=== PATIENT | male | born 1950 | race Caucasian/White ===

== ENCOUNTER → 2018-06-25 08:01 | Outpatient (CLI) | payer MEDICARE, OTHER, SELFPAY ==
--- NOTE | 2018-06-25 | DI.US.S_ITS ---
PROCEDURE: US ABD AORTA ANEURYSM SCREEN INDICATIONS: SCREENING/COUGH/DYSPNEA TECHNIQUE: Real time scanning was performed of the aorta and iliac arteries, with image documentation. COMPARISON: None. FINDINGS: Aorta: Proximal aortic diameter measures 2.1 cm. Mid-aorta measures 1.5 cm. Distal aortic diameter is 1.6 cm. Iliac arteries: Right common iliac artery measures 0.8 cm. Left common iliac artery measures 0.9 cm. IMPRESSION: No ectasia or aneurysmal dilatation of the abdominal aorta or iliac arteries. Dictated by: Peace Lanier M.D. on 06/25/2018 at 8:47 Approved by: Peace Lanier M.D. on 06/25/2018 at 8:48
--- NOTE | 2018-06-25 | DI.RAD.S_ITS ---
PROCEDURE: XR CHEST 2V INDICATIONS: SCREENING/COUGH/DYSPNEA TECHNIQUE: 2 views of the chest were acquired. COMPARISON: [facility], CHEST 2 VIEW, 07/14/2015, 9:20. [facility], CHEST 2 VIEW, 03/26/2015, 15:27. FINDINGS: Surgical changes and devices: None. Lungs and pleura: No pleural effusions or pneumothorax. Lungs are clear. Mediastinum: Mediastinal contours are normal. Heart size is normal. Bones and chest wall: No suspicious bony abnormalities. Soft tissues appear unremarkable. IMPRESSION: Normal for age, source of current symptoms is not seen. Dictated by: Bang Romano M.D. on 06/25/2018 at 8:29 Approved by: Bang Romano M.D. on 06/25/2018 at 8:29
== END ==
PROVIDERS: Family Provider Family Medicine; PCP Family Medicine; Visit Provider Family Medicine
DX: Z13.6 Encounter for screening for cardiovascular disorders (principal); R05 Cough; R06.00 Dyspnea, unspecified
CPT/HCPCS: 71046; 76706

== ENCOUNTER → 2020-06-12 11:05 | Outpatient (CLI) | payer MEDICARE, OTHER, SELFPAY ==
[2020-06-13 12:07] LABS: COVID19 Sendout Not Detected (Not Detect)
== END ==
PROVIDERS: Family Provider Family Medicine; PCP Family Medicine; Visit Provider Physician Assistant
DX: Z11.59 Encounter for screening for other viral diseases (principal)
CPT/HCPCS: 87635

== ENCOUNTER 2020-06-15 12:26 | Day surgery (SDC) | payer MEDICARE, OTHER, SELFPAY ==
--- NOTE | 2020-06-15 | PATH_ITS ---
[facility] Accession Number: [id number] . 01 Material submitted: . PART A: colon - CECAL BIOPSY OF FRIABLE MUCOSA PART B: colon - ASCENDING COLON POLYP BIOPSY PART C: colon - TRANSVERSE COLON BIOPSY 2MM . 02 Diagnosis: A. Cecum, Biopsy Of Friable Mucosa: Colonic mucosa with focal pseudolipomatous changes. Negative for active inflammation, granulomas, dysplasia or malignancy. . B. Ascending Colon, Polyp, Biopsy: Tubular adenoma. . C. Transverse Colon, 2 MM, Biopsy: Tubular adenoma. [facility] 06/18/2020 1336 Local . 02 Comment: A. Pseudolipomatous changes are considered to be a benign reactive change often seen secondary to air insufflation. . 02 Electronically signed: . Esther Schumacher MD, Pathologist NPI- [id number] . 01 Gross description: . Part A: CECAL BIOPSY OF FRIABLE MUCOSA: Received in formalin is 1 fragment(s) of jasso, soft tissue measuring 0.3 x 0.3 x 0.2 cm submitted entirely in 1 cassette(s) Part B: ASCENDING COLON POLYP BIOPSY: Received in formalin are multiple fragment(s) of jasso, soft tissue measuring 0.7 x 0.4 x 0.2 cm in aggregate submitted entirely in 1 cassette(s) Part C: TRANSVERSE COLON BIOPSY 2MM: Received in formalin is 1 fragment(s) of jasso, soft tissue measuring 0.3 x 0.3 x 0.3 cm submitted entirely in 1 cassette(s) /QBJ 06/16/2020 0823 Local . 02 Pathologist provided ICD-10: D12.2, D12.3 . 02 CPT . 686650, 636868, 025011 Performed at: [address] [place] [address] [address], [place], [place] [id number] MD Tano Hong MD Phone: [phone] Performed at: [address] [id number] MD Esther Schumacher MD Phone: [phone]
--- NOTE | 2020-06-15 11:43 | PM.HP.1 ---
History of Present Illness History of Present Illness Date Patient Seen: 06/15/20 Chief complaint: SCREENING COLONOSCOPY Narrative: 70 year old male comes in today for consideration of a screening colonoscopy. Has had 3 previous colonoscopies, first procedure was for screening whilst in the . Results not available for dictation. Other colonoscopies as follows: 04/04/2013, indicated for mild anemia. Findings showed a right-sided and rectal polyp, pathology not available at dictation. Scattered diverticuli. 09/29/2015, indicated for heme-positive stool and FIT test positive. Tubular adenomas x 7 at 85 cm, 75 cm, and 35 cm, size not reported. There have been no lower GI symptoms suggesting disease such as change in bowel habits, bleeding, abdominal pain or anemia. There's been no family history of colon cancer or colon polyps. Overall health issues have been stable, including no major cardiac events for at least 6 weeks. PCP: Dr. Florentino Past medical history: Anemia Hypogonadism Hyperlipidemia GERD Left foot pain Epidermoid cyst Past surgical history: Amputation of lesser toe foot Colonoscopy x2 Family history: Noncontributory Social history: , worked [employer], now retired. Patient History Medical History (Updated 06/15/20 @ 12:26 by Brandy Garcia RN) Actinic keratosis (Acute) Anemia (Acute) Epidermoid cyst (Acute) Foot pain, left (Acute) GERD (gastroesophageal reflux disease) (Acute) Hyperlipidemia (Acute) Hypogonadism (Acute) Surgical History (Updated 06/15/20 @ 12:26 by Brandy Garcia RN) History of amputation of lesser toe of left foot (Acute) Meds Home Medications and Allergies Home Medications Medication Instructions Recorded Confirmed Type aspirin 40.5 mg PO WEEKLY 06/15/20 06/15/20 History uigevexmnii-K9-Stnsmemwv serr 1 tab PO DAILY 06/15/20 06/15/20 History [Glucosamine Daily Complex] nitroglycerin [Nitrostat] 0.4 mg SUBLINGUAL PRN PRN 06/15/20 06/15/20 History pantoprazole 40 mg PO DAILY 06/15/20 06/15/20 History simvastatin 20 mg PO BEDTIME 06/15/20 06/15/20 History Allergies Allergy/AdvReac Type Severity Reaction Status Date / Time No Known Allergies Allergy Uncoded 02/07/18 13:01 Review of Systems Review of Systems ROS: Yes All systems reviewed with the patient and are negative except as otherwise documented Exam Narrative Exam Narrative: GENERAL: Alert and oriented, appearing stated age and in no acute distress. HEENT: Head normocephalic/atraumatic. Pupils equal, round, and reactive to light and accomodation. Extraocular muscles intact. Nasal mucosa moist, septum midline. Oral mucosa moist, no lesions. Neck soft and supple, no lymphadenopathy. LUNGS: Clear to ausculation bilaterally, no wheezes, rhonchi or rales. CV: Normal S1 and S2 with regular rate and rhythm, no audible murmurs, rubs or gallops. ABDOMEN: Soft, non-tender, non-distended, no organomegaly. Positive bowel sounds. EXTREMITIES: No clubbing, cyanosis, or edema. NEURO: Cranial nerves II through XII grossly intact, no focal deficits. PSYCH: Alert and oriented x 3. SKIN: No concerning lesions. Assessment & Plan Assessment & Plan narrative: 1. History of colon polyps 2. Screening for colon cancer Plan for colonoscopy. The nature and character of the procedure as well as anticipated results were discussed. The possibility of not completing the procedure was also discussed. Possible complications including aspiration pneumonia, bleeding, perforation and reaction to medications either for sedation or preparation and missed lesions were discussed. Questions were answered and proceeding to the colonoscopy was elected. Informed consent signed. I sincerely appreciate the referral allowing me to participate in this patient's care. Please contact me with any questions or concerns.
--- NOTE | 2020-06-15 11:52 | PM.OP.ENDO ---
Operative Date/Time/Diagnoses Date of procedure: 06/15/20 Pre-op diagnosis: 1. History of colon polyps 2. Screening for colon cancer Post-op diagnosis: other (Please see below) Procedure & Clinicians Study performed: Colonoscopy Same procedure as scheduled: Yes Surgeon: Kellie Page Procedure Notes SCOAP/Timeout: 1:54 p.m. Procedure in detail: ENDOSCOPIST: Kellie Page MD Sedation RN: Gustavo Chaves RN Sedation start time: 1:55 p.m. Sedation end time: 2:25 p.m. PROCEDURE: Colonoscopy with cold biopsy INDICATIONS: 1. History of colon polyps 2. Screening for colon cancer MEDICATION: Levsin 0.125 mg sublingual, incremental doses of Versed and fentanyl until appropriate level sedation achieved. ASA CLASS: 2 CECAL WITHDRAWAL TIME: 19 minutes COMPLICATIONS: None. EXTENT OF PROCEDURE: Cecum. QUALITY OF PREP: Good with portions of liquid stool. PROCEDURE: Prior to insertion of the colonoscope, a digital rectal examination was accomplished with circumferential palpation of the distal rectal mucosa without significant findings being noted. The high-definition colonoscope was passed into the rectum in the usual fashion and advanced over to the cecum without difficulty. The ileocecal valve, appendiceal stoma, and medial wall all could be inspected and the cecal mucosa was noted to be friable friable throughout, targeted biopsy taken x2. ASCENDING COLON: As the colonoscope was withdrawn, care was taken to expose and inspect the haustral folds and a 6 mm polyp was seen and removed with cold biopsy forceps. HEPATIC FLEXURE: Normal, no polyps, diverticula or other abnormalities. TRANSVERSE COLON: 3 polyps, 2-4 mm removed with cold biopsy. Otherwise, no diverticula or other abnormalities. DESCENDING COLON: Moderate diverticulosis, no no polyps or other abnormalities. SIGMOID COLON: Moderate diverticulosis, no no polyps or other abnormalities. RECTUM: Normal. J maneuver was produced. There was no significant perianal disease. The J maneuver was broken. The remainder of the rectum was inspected and there was a internal and external hemorrhoid disease. The scope was withdrawn. IMPRESSION: 1. Friable cecal mucosa 2. Ascending polyp x1, 6 mm, removed with cold biopsy forceps 3. Transverse polyp x3, 2-4 mm, removed with cold biopsy forceps 4. Diverticulosis, moderate, left-sided 5. External hemorrhoids 6. Internal hemorrhoids PLAN: 1. Follow-up in clinic status post pathology results. The possibility of a missed lesion including a malignancy has been discussed with the patient previously. Potential alarm symptoms have been discussed and should be reported immediately. Post-procedure Recommendations: Will call with biopsy results Follow up: weeks (2) Disposition: PACU
[2020-06-15] MEDS: LACTATED RINGERS 1,000 ML 200 ML IV (13:00)
[2020-06-15] MEDS: HYOSCYAMINE 0.125 MG TABLET PO (13:04)
[2020-06-15 13:05] VITALS: BP 171/83; PULSE 86; RESP 16; TEMP 36.8; O2SAT 94; BMI 24.3
[2020-06-15 13:15] VITALS: BP 158/93; PULSE 77; O2SAT 94
[2020-06-15] MEDS: MIDAZOLAM 5 MG/5 ML VIAL IV (13:59)
[2020-06-15] MEDS: fentaNYL 250 MCG/5 ML INJ IV (14:01)
[2020-06-15 14:35] VITALS: BP 122/75; PULSE 74; RESP 16; TEMP 36; O2SAT 96
[2020-06-15 14:40] VITALS: BP 131/75; PULSE 78; RESP 20; O2SAT 95
[2020-06-15 14:44] VITALS: BP 135/85; PULSE 82; RESP 20; TEMP 36.2; O2SAT 95
[2020-06-15 14:53] VITALS: BP 132/76; PULSE 76; RESP 16; TEMP 36.9; O2SAT 95
== END 2020-06-15 15:07 | disposition home or self-care (01) ==
PROVIDERS: Family Provider Family Medicine; PCP Family Medicine; Referring Provider Family Medicine; Visit Provider Student in an Organized Health Care Education/Training Program
PROC: 0DJD8ZZ Inspection of Lower Intestinal Tract, Via Natural or Artificial Opening Endoscopic (ICD-10-PCS; CPT 45378; principal; 2020-06-15 13:45)
DX: Z12.11 Encounter for screening for malignant neoplasm of colon (principal); Z86.010 Personal history of colon polyps; D12.2 Benign neoplasm of ascending colon; D12.3 Benign neoplasm of transverse colon; K57.30 Diverticulosis of large intestine without perforation or abscess without bleeding; K64.4 Residual hemorrhoidal skin tags; K64.8 Other hemorrhoids
CPT/HCPCS: 45380; J2250; J3010

== ENCOUNTER → 2021-03-19 09:58 | Outpatient (ROUT) | payer MEDICARE, OTHER, SELFPAY ==
[2021-03-19 10:04] LABS: Add Manual Diff / Slide Review NO; Basophils Absolute Auto 100 /uL (0-100); Basophils Percent Auto 1.5 % (0-2); Eosinophils Absolute Auto 200 /uL (0-450); Eosinophils Percent Auto 2.9 % (2-4); Hematocrit 37.9 % (41-53); Hemoglobin 12.7 g/dL (13.5-17.5); Lymphocytes Absolute Auto 1100 /uL (1100-4500); Lymphocytes Percent Auto 20.5 % (25-40); Mean Corpuscular HGB Conc 33.5 % (30-36); Mean Corpuscular Volume 92.3 fL (80-100); Monocytes Absolute Auto 500 /uL (0-900); Monocytes Percent Auto 9.5 % (3-14); Neutrophils Absolute Auto 3500 /uL (1500-7000); Neutrophils Percent Auto 65.6 % (50-75); Platelet Count 235 X10^3/uL (150-400); Red Blood Cell Count 4.11 X10^6/uL (4.5-5.9); Red Cell Distribution Width 13.5 % (11.6-14.8); White Blood Cell Count 5.3 X10^3/uL (4.5-11.0)
[2021-03-19 10:18] LABS: Alanine Aminotransferase 33 IU/L (<50); Albumin 4.3 g/dL (3.5-5.0); Albumin Globulin Ratio 1.7 (1.0-2.8); Alkaline Phosphatase 70 U/L (38-126); Aspartate Aminotransferase 37 IU/L (17-59); Bilirubin Total 0.7 mg/dL (0.2-1.3); Blood Urea Nitrogen 11 mg/dL (9-20); C-Reactive Protein Quant < 0.5 mg/dL (<1.0); Calcium 9.5 mg/dL (8.4-10.2); Carbon Dioxide 28 mmol/L (22-32); Chloride 103 mmol/L (98-107); Estimated Glomerular Filt Rate > 60.0 mL/min (>60); Globulin 2.6 g/dL (1.7-4.1); Glucose 95 mg/dL (80-110); HEMOLYSIS < 15 (0-50); Potassium 4.1 mmol/L (3.4-5.1); Sodium 139 mmol/L (137-145); Total Protein 6.9 g/dL (6.3-8.2)
[2021-03-19 10:35] LABS: Erythrocyte Sedimentation Rate 9 MM/HR (0-15)
== END ==
PROVIDERS: Family Provider Family Medicine; PCP Family Medicine; Visit Provider Nurse Practitioner Family
DX: R10.32 Left lower quadrant pain (principal)
CPT/HCPCS: 36415; 80053; 85025; 85651; 86140

== ENCOUNTER → 2021-05-21 08:52 | Outpatient (CLI) | payer MEDICARE, OTHER, SELFPAY ==
[2021-05-21 10:25] LABS: COVID19 -Nasal RAPID Negative (Negative)
== END ==
PROVIDERS: Family Provider Family Medicine; PCP Family Medicine; Visit Provider Surgery
DX: Z20.822 Contact with and (suspected) exposure to COVID-19 (principal)
CPT/HCPCS: 87635; C9803

== ENCOUNTER 2021-05-24 10:12 | Day surgery (SDC) | payer MEDICARE, OTHER, SELFPAY ==
--- NOTE | 2021-05-24 | PATH_ITS ---
[facility] Accession Number: [id number] . 01 Material submitted: . rectum - RECTAL POLYP . 01 Clinical history: . DX COLONOSCOPY . 02 Diagnosis: Rectal Polyp, Biopsy: Tubular adenoma. I 05/26/2021 1340 Local . 02 Electronically signed: . Calixto Valenzuela MD, PhD, Pathologist NPI- [id number] . 01 Gross description: . RECTAL POLYP: Received in formalin is 1 fragment(s) of jasso, soft tissue measuring 0.5 x 0.5 x 0.4 cm submitted entirely in 1 cassette(s) /MARK 05/25/2021 0538 Local . 02 Pathologist provided ICD-10: D12.8 . 02 CPT . 096816 Performed at: 01 [facility] [address] [facility], [place], [place] [id number] MD Tano Hong MD Phone: [phone] Performed at: 02 [facility] [place] [address] [place], [place] [id number] MD Esther Schumacher MD Phone: [phone]
[2021-05-24] MEDS: LACTATED RINGERS 1,000 ML 200 ML IV (10:37)
[2021-05-24 10:41] VITALS: BMI 23.5
[2021-05-24 10:48] VITALS: BP 141/81; PULSE 77; RESP 16; TEMP 36; O2SAT 97
--- NOTE | 2021-05-24 11:15 | PM.PREOP ---
Pre-operative Note Interval Note History & Physical reviewed/Exam performed by Physician: Yes Changes to H&P: No
[2021-05-24] MEDS: LIDOCAINE 4% SOLN 50 ML 20 ML TOP (11:22)
[2021-05-24] MEDS: fentaNYL 250 MCG/5 ML INJ IV (11:47)
[2021-05-24] MEDS: MIDAZOLAM 5 MG/5 ML VIAL IV (11:47)
[2021-05-24 12:07] VITALS: BP 113/64; PULSE 73; RESP 18; O2SAT 95
[2021-05-24 12:11] VITALS: BP 127/70; PULSE 74; RESP 15; O2SAT 97
[2021-05-24 12:17] VITALS: BP 125/74; PULSE 74; RESP 14; O2SAT 95
--- NOTE | 2021-05-24 12:21 | P.OP.ENDO_ITS ---
Operative Date/Time/Diagnoses Date of procedure: 05/24/21 Time of procedure: 12:21 Pre-op diagnosis: anemia, Positive FIT Post-op diagnosis: same Procedure & Clinicians Study performed: EGD and Colonoscopy Same procedure as scheduled: Yes Indications: anemia +FIT Procedure Notes Procedure in detail: The history and physical was performed/updated and the patient is ASA class is 2. The procedure was discussed in detail with the patient. Potential risks complications including infection, bleeding, missed diagnosis, perforation, need for surgery, and were explained. Their questions were answered and informed consent was obtained. Patient placed in left lateral decubitus position. Time out was performed. Procedural sedation was administered with Versed and Fentanyl. A bite block was placed. the scope was inserted into the mouth and advanced through the esophagus and into the stomach. The pylorus was intubated and the duodenum was normal to the 2nd portion. The scope was retroflexed within the stomach and there was a moderate hernia. No ulcers, or gastritis. The scope was withdrawn into the esophagus the Z line was seen at 40 cm from the incisions. There was no Santiago's esophagitis or masses or strictures. Stomach was desufflated and sco pe removed. Examination began with a thorough inspection of the perianal area there was no evidence of fissures, fistulae, external hemorrhoids or cutaneous malignancy. The colonoscopy scope was then placed into the anal canal and was advanced to the cecum, which was identified by the ileocecal valve, the appendiceal orifice and the confluence of the taenia. The scope was then slowly withdrawn examining colon thoroughly in all directions, irrigating it of any residual stool. FINDINGS 1. Rectal polyp removed with cold snare 2. Cecal mucosal excoriations no active bleeding 3. Sigmoid diverticulosis The patient tolerated the procedure well. They will be discharged once criteria are met. The prep was of good/excellent quality. The withdrawl time was 7minutes. The sedation time was 38 minutes. Specimen(s): other (rectal polyp) Complications: none Impression: mucosal inflamation, rectal polyp Post-procedure Recommendations: Colonscopy in 5 years Disposition: same day surgery
[2021-05-24 12:32] VITALS: BP 119/75; PULSE 68; RESP 16; O2SAT 94
[2021-05-24 12:51] VITALS: BP 114/73; PULSE 59; RESP 14; TEMP 35.9; O2SAT 98
--- NOTE | 2021-05-24 13:11 | SUR.PHASEII ---
1250 tolerating ice chips well, declined PO fluids. A&O, pleasant and appreciative.
== END 2021-05-24 13:00 | disposition home or self-care (01) ==
PROVIDERS: Family Provider Family Medicine; PCP Family Medicine; Referring Provider Surgery; Visit Provider Surgery
PROC: 0DJ08ZZ Inspection of Upper Intestinal Tract, Via Natural or Artificial Opening Endoscopic (ICD-10-PCS; CPT 43235; principal; 2021-05-24 11:30)
PROC: 0DJD8ZZ Inspection of Lower Intestinal Tract, Via Natural or Artificial Opening Endoscopic (ICD-10-PCS; CPT 45378; 2021-05-24 11:30)
DX: R19.5 Other fecal abnormalities (principal); D64.9 Anemia, unspecified; K21.9 Gastro-esophageal reflux disease without esophagitis; E78.5 Hyperlipidemia, unspecified; K57.30 Diverticulosis of large intestine without perforation or abscess without bleeding; D12.8 Benign neoplasm of rectum
CPT/HCPCS: 45385; 43235; 99152; 99153; J2250; J3010

== ENCOUNTER 2022-01-07 11:16 | Emergency (ER) | payer MEDICARE, OTHER, SELFPAY ==
[2022-01-07] VITALS (17 sets, daily range): BP systolic 117–219; BP diastolic 68–105; PULSE 63–86; RESP 11–21; TEMP 36.6; O2SAT 93–99; BMI 24.4
--- NOTE | 2022-01-07 11:37 | DI.RAD.S_ITS ---
PROCEDURE: XR CHEST 1V INDICATIONS: chest pain TECHNIQUE: One view of the chest was acquired. COMPARISON: [facility], CR, XR CHEST 2V, 06/25/2018, 7:47. FINDINGS: Surgical changes and devices: None. Lungs and pleura: No consolidation, pleural effusions or pneumothorax. Mediastinum: Mediastinal contours appear normal. Heart size is normal. Bones and chest wall: Remote left rib deformities. Overlying soft tissues appear unremarkable. IMPRESSION: No acute cardiopulmonary abnormality. Dictated by: Wolfgang Cordova M.D. on 01/07/2022 at 12:20 Approved by: Wolfgang Cordova M.D. on 01/07/2022 at 12:20
--- NOTE | 2022-01-07 11:52 | DI.CT.S_ITS ---
PROCEDURE: CT HEAD/BRAIN WO CON INDICATIONS: blurred vision TECHNIQUE: Noncontrast 4.5 mm thick angled axial sections acquired from the foramen magnum to the vertex, with coronal and sagittal reformats. For radiation dose reduction, the following was used: automated exposure control, adjustment of mA and/or kV according to patient size. COMPARISON: None. FINDINGS: Image quality: Excellent. CSF spaces: Basal cisterns are patent. No extra-axial fluid collections. The ventricles are symmetric in size and shape. Brain: No intracranial bleeds or masses. There is cerebral volume loss for age, with resultant ventricular and sulcal prominence. There are periventricular and deep white matter chronic small vessel ischemic changes. There is intracranial internal carotid artery atherosclerosis. Skull and face: Calvarium and visualized facial bones appear intact, without suspicious lesions. Sinuses: Visualized sinuses and mastoids are clear. IMPRESSION: 1. No CT evidence of acute intracranial abnormalities. 2. Age related atrophy and mild white matter chronic small vessel ischemic changes. Dictated by: Kingsley Mauricio M.D. on 01/07/2022 at 12:21 Approved by: Knigsley Mauricio M.D. on 01/07/2022 at 12:22
[2022-01-07 12:00] LABS: Hematocrit 45.9 % (41-53); Hemoglobin 15.6 g/dL (13.5-17.5); Mean Corpuscular Volume 91.4 fL (80-100); Red Blood Cell Count 5.02 X10^6/uL (4.5-5.9); White Blood Cell Count 5.5 X10^3/uL (4.5-11.0)
[2022-01-07 12:01] LABS: Add Manual Diff / Slide Review NO; Basophils Percent Auto 0.9 % (0-2); Eosinophils Percent Auto 2.5 % (2-4); Lymphocytes Percent Auto 16.3 % (25-40); Mean Corpuscular Hemoglobin 31.1 PG (26-34); Monocytes Percent Auto 9.5 % (3-14); Neutrophils Percent Auto 70.8 % (50-75); Platelet Count 204 X10^3/uL (150-400)
--- NOTE | 2022-01-07 12:29 | ED_ITS ---
HPI - Chest Pain <Justice Gomez PA-C - Last Filed: 01/07/22 17:23> General Chief Complaint: Chest Pain Stated Complaint: chest pain/blurred vision Time Seen by Provider: 01/07/22 11:59 Source: patient Mode of arrival: Ambulatory History of Present Illness HPI narrative: This is a 71 male who presents complaining of 3 days of intermittent chest pain. Chest pain described as a pressure that he feels in both his ?front and back?. Currently feels mild chest pain. Patient is also describing having left eye blurred vision without any pain. Patient also describes 1 episode of ?not knowing where he was? yesterday. Patient denies any nausea, vomiting, abdominal pain, unilateral weakness, slurred speech, or any other concerning signs or symptoms. Related Data Home Medications Medication Instructions Recorded Confirmed aspirin 81 mg chewable tablet 40.5 mg PO WEEKLY 06/15/20 05/06/21 glucosamine [id number] 1 tab PO DAILY 06/15/20 05/24/21 lore 1,500 mg-400 unit-100 mg tablet (Glucosamine Daily Complex) nitroglycerin 0.4 mg sublingual 0.4 mg SUBLINGUAL PRN PRN 06/15/20 05/24/21 tablet (Nitrostat) simvastatin 20 mg tablet 20 mg PO BEDTIME 06/15/20 05/24/21 cholecalciferol (vitamin D3) 10 10 mcg PO DAILY 05/06/21 05/24/21 mcg (400 unit) capsule Previous Rx's Medication Instructions Recorded sodium,potassium,mag sulfates 17.5 See Rx Instructions PO .COMPLEX 05/06/21 gram-3.13 gram-1.6 gram oral soln #354 ml (Suprep Bowel Prep Kit) Allergies Allergy/AdvReac Type Severity Reaction Status Date / Time No Known Drug Allergies Allergy Verified 01/07/22 11:36 Review of Systems <Justice Gomez PA-C - Last Filed: 01/07/22 17:23> Review of Systems Narrative: See HPI. Patient History <Justice Gomez PA-C - Last Filed: 01/07/22 17:23> Medical History Actinic keratosis Anemia Epidermoid cyst Foot pain, left GERD (gastroesophageal reflux disease) Hyperlipidemia Hypogonadism Surgical History History of amputation of lesser toe of left foot Social History household members: spouse Smoking Status: Former smoker alcohol intake: current Smoking Status: Former smoker alcohol intake frequency: 0-2 drinks per day Alcohol type: beer Substance Use Type: does not use Exam <SUZETTE Dominguez Last Filed: 01/07/22 17:23> Initial Vital Signs Initial Vital Signs: Vital Signs Temperature 98 F 01/07/22 11:32 Pulse Rate 81 01/07/22 11:32 Respiratory Rate 17 01/07/22 11:32 Blood Pressure 183/91 H 01/07/22 11:32 Pulse Oximetry 99 01/07/22 11:32 Const General: cooperative and healthy appearing Eyes General: appearance normal, both eyes and all related structures Alignment and Position: alignment normal Pupils: PERRL EOM: EOM intact bilaterally Neck Neck: normal visual inspection Chest Chest: normal inspection of the chest Resp Effort & Inspection: normal respiratory effort and able to speak in complete sentences Cardio Rate: regular rate Rhythm: regular rhythm Heart Sounds: S1 normal and S2 normal GI Palpation: soft Neuro General: patient alert, patient awake and patient oriented x3 Cranial Nerves: CN's II-XI intact bilaterally, PERRL, EOM intact bilaterally, facial strength normal, tongue midline and able to elevate shoulders bilaterally <Rachel Wagner DO - Last Filed: 01/10/22 15:50> Initial Vital Signs Initial Vital Signs: Vital Signs Temperature 98 F 01/07/22 11:32 Pulse Rate 81 01/07/22 11:32 Respiratory Rate 17 01/07/22 11:32 Blood Pressure 183/91 H 01/07/22 11:32 Pulse Oximetry 99 01/07/22 11:32 Course <SUZETTE Dominguez Last Filed: 01/07/22 17:23> Orders Ordered: Discontinued Medications Aspirin (Aspirin 81 Mg Chew Tab) 324 mg PO NOW ONE Stop: 01/07/22 11:52 Last Admin: 01/07/22 12:37 Dose: 324 mg Documented by: CARLOS Nitroglycerin (Nitroglycerin 0.4 Mg Sl Tab) 0.4 mg SL [id number] PRN PRN Reason: Chest Pain Last Admin: 01/07/22 12:37 Dose: 0.4 mg Documented by: CARLOS Reevaluation(s) Reevaluation #1: 1300: Patient reports chest pain is greatly improved after initial dose of nitroglycerin. Vital Signs Vital signs: Vital Signs - 8 hr 01/07/22 11:32 01/07/22 12:20 01/07/22 12:30 Temperature 98 F Pulse Rate 81 68 64 Respiratory Rate 17 18 19 Blood Pressure 183/91 H 219/105 H 189/95 H Pulse Oximetry 99 99 99 01/07/22 12:37 01/07/22 12:45 01/07/22 13:00 Temperature Pulse Rate 65 86 65 Respiratory Rate 16 21 Blood Pressure 189/95 H 142/77 H 152/74 H Pulse Oximetry 93 98 01/07/22 13:15 01/07/22 13:30 01/07/22 13:45 Temperature Pulse Rate 63 63 64 Respiratory Rate 18 11 L 13 Blood Pressure 124/68 118/71 127/68 Pulse Oximetry 98 97 97 01/07/22 14:00 01/07/22 14:15 01/07/22 14:30 Temperature Pulse Rate 66 68 67 Respiratory Rate 11 L 15 18 Blood Pressure 117/71 130/76 134/82 Pulse Oximetry 98 97 97 01/07/22 14:45 01/07/22 15:00 01/07/22 15:15 Temperature Pulse Rate 69 67 69 Respiratory Rate 16 15 21 Blood Pressure 150/86 H 145/86 H 135/84 Pulse Oximetry 95 97 98 01/07/22 15:30 01/07/22 15:45 Temperature Pulse Rate 67 68 Respiratory Rate 16 15 Blood Pressure 141/84 H 142/76 H Pulse Oximetry 97 97 <Rachel Wagner DO - Last Filed: 01/10/22 15:50> Orders Ordered: Discontinued Medications Aspirin (Aspirin 81 Mg Chew Tab) 324 mg PO NOW ONE Stop: 01/07/22 11:52 Last Admin: 01/07/22 12:37 Dose: 324 mg Documented by: CARLOS Nitroglycerin (Nitroglycerin 0.4 Mg Sl Tab) 0.4 mg SL [id number] PRN PRN Reason: Chest Pain Last Admin: 01/07/22 12:37 Dose: 0.4 mg Documented by: CARLOS Vital Signs Vital signs: Vital Signs - 8 hr 01/07/22 11:32 01/07/22 12:20 01/07/22 12:30 Temperature 98 F Pulse Rate 81 68 64 Respiratory Rate 17 18 19 Blood Pressure 183/91 H 219/105 H 189/95 H Pulse Oximetry 99 99 99 01/07/22 12:37 01/07/22 12:45 01/07/22 13:00 Temperature Pulse Rate 65 86 65 Respiratory Rate 16 21 Blood Pressure 189/95 H 142/77 H 152/74 H Pulse Oximetry 93 98 01/07/22 13:15 01/07/22 13:30 01/07/22 13:45 Temperature Pulse Rate 63 63 64 Respiratory Rate 18 11 L 13 Blood Pressure 124/68 118/71 127/68 Pulse Oximetry 98 97 97 01/07/22 14:00 01/07/22 14:15 01/07/22 14:30 Temperature Pulse Rate 66 68 67 Respiratory Rate 11 L 15 18 Blood Pressure 117/71 130/76 134/82 Pulse Oximetry 98 97 97 01/07/22 14:45 01/07/22 15:00 01/07/22 15:15 Temperature Pulse Rate 69 67 69 Respiratory Rate 16 15 21 Blood Pressure 150/86 H 145/86 H 135/84 Pulse Oximetry 95 97 98 01/07/22 15:30 01/07/22 15:45 Temperature Pulse Rate 67 68 Respiratory Rate 16 15 Blood Pressure 141/84 H 142/76 H Pulse Oximetry 97 97 MDM - Chest Pain <Justice Gomez PA-C - Last Filed: 01/07/22 17:23> Lab Data Result diagrams: 01/07/22 11:50 01/07/22 12:42 Labs: Lab Results 01/07/22 01/07/22 01/07/22 Range/Units 11:50 12:42 14:54 WBC 5.5 (4.5-11.0) X10^3/uL RBC 5.02 (4.5-5.9) X10^6/uL Hgb 15.6 (13.5-17.5) g/dL Hct 45.9 (41-53) % MCV 91.4 (80-100) fL MCH 31.1 (26-34) PG MCHC 34.0 (30-36) % RDW 13.0 (11.6-14.8) % Plt Count 204 (150-400) X10^3/uL Neut % (Auto) 70.8 (50-75) % Lymph % (Auto) 16.3 L (25-40) % Lipscomb % (Auto) 9.5 (3-14) % Eos % (Auto) 2.5 (2-4) % Baso % (Auto) 0.9 (0-2) % Lymph # (Auto) Not Reportable Lipscomb # (Auto) Not Reportable Baso # (Auto) Not Reportable Sodium 138 (137-145) mmol/L Potassium 4.4 (3.4-5.1) mmol/L Chloride 105 (98-107) mmol/L Carbon Dioxide 30 (22-32) mmol/L BUN 12 (9-20) mg/dL Creatinine 0.55 L (0.66-1.25) mg/dL Estimated GFR > 60.0 (>60) mL/min BUN/Creatinine Ratio 21.8 (6-22) Glucose 93 (80-110) mg/dL Calcium 9.2 (8.4-10.2) mg/dL Magnesium 2.0 (1.6-2.3) mg/dL Total Bilirubin 0.5 (0.2-1.3) mg/dL AST 38 (17-59) IU/L ALT 40 (<50) IU/L Alkaline Phosphatase 68 (38-126) U/L Total Creatine Kinase 123 (55-170) U/L CK-MB (CK-2) 2.01 (<2.37) ng/mL CK-MB (CK-2) Rel Index 1.6 (1.5-5.0) % Troponin I < 0.012 < 0.012 (0.01-0.034) ng/mL Total Protein 7.3 (6.3-8.2) g/dL Albumin 4.3 (3.5-5.0) g/dL Globulin 3.0 (1.7-4.1) g/dL Albumin/Globulin Ratio 1.4 (1.0-2.8) Lipase 260 (23-300) U/L Imaging Data Chest x-ray: Radiologist's Impression: PROCEDURE: XR CHEST 1V INDICATIONS: chest pain TECHNIQUE: One view of the chest was acquired. COMPARISON: [facility], CR, XR CHEST 2V, 06/25/2018, 7:47. FINDINGS: Surgical changes and devices: None. Lungs and pleura: No consolidation, pleural effusions or pneumothorax. Mediastinum: Mediastinal contours appear normal. Heart size is normal. Bones and chest wall: Remote left rib deformities. Overlying soft tissues appear unremarkable. IMPRESSION: No acute cardiopulmonary abnormality. Dictated by: Wolfgang Cordova M.D. on 01/07/2022 at 12:20 Approved by: Wolfgang Cordova M.D. on 01/07/2022 at 12:20 CT scan - head: Radiologist's Impression: PROCEDURE: CT HEAD/BRAIN WO CON INDICATIONS: blurred vision TECHNIQUE: Noncontrast 4.5 mm thick angled axial sections acquired from the foramen magnum to the vertex, with coronal and sagittal reformats. For radiation dose reduction, the following was used: automated exposure control, adjustment of mA and/or kV according to patient size. COMPARISON: None. FINDINGS: Image quality: Excellent. CSF spaces: Basal cisterns are patent. No extra-axial fluid collections. The ventricles are symmetric in size and shape. Brain: No intracranial bleeds or masses. There is cerebral volume loss for age, with resultant ventricular and sulcal prominence. There are periventricular and deep white matter chronic small vessel ischemic changes. There is intracranial internal carotid artery atherosclerosis. Skull and face: Calvarium and visualized facial bones appear intact, without suspicious lesions. Sinuses: Visualized sinuses and mastoids are clear. IMPRESSION: 1. No CT evidence of acute intracranial abnormalities. 2. Age related atrophy and mild white matter chronic small vessel ischemic changes. Dictated by: Kingsley Mauricio M.D. on 01/07/2022 at 12:21 Approved by: Kingsley Mauricio M.D. on 01/07/2022 at 12:[address] [id number] ReportSigned Patient: Devon Charles FMR#: [id number]: 8Acct:[id number]/Sex: 71 / MDate of Service: 01/07/22Loc: EDAccession Number: [id number] Procedure: XR chest 1V Ordering Provider: Rachel Wagner D.O. ECG Data Interpretation: 11:32 -EKG #1 -rate of 61, normal rhythm, no ST elevation 12:08 - EKG #2 -rate of 63, normal rhythm, no ST elevation MDM Narrative Medical decision making narrative: This is a 71-year-old male who presents to the emergency department due to hypertensive emergency with an initial blood pressure 183/91. Patient's blood pressure significantly improved to 142/77 after initial dose of nitroglycerin. Blood pressure has remained in roughly the systolic of 140s since then. Patient has reportedly received a prescription for metoprolol from his primary care provider with prescription waiting for him at the pharmacy. EKG showed no evidence of ACS. Initial troponin within normal limits. Repeat EKG and repeat troponin showed no acute changes. Head CT showed no acute findings. lab work unremarkable as well. Patient's reports chest pain and blurred vision significantly improved after the nitroglycerin was given. Patient will be discharged with instructions to follow up with primary care provider for long- term evaluation of his high blood pressure. Patient instructed to take at home blood pressure readings and to take the metoprolol as prescribed avoid further episodes similar to this. <Rachel Wagner DO - Last Filed: 01/10/22 15:50> Lab Data Labs: Lab Results 01/07/22 01/07/22 01/07/22 Range/Units 11:50 12:42 14:54 WBC 5.5 (4.5-11.0) X10^3/uL RBC 5.02 (4.5-5.9) X10^6/uL Hgb 15.6 (13.5-17.5) g/dL Hct 45.9 (41-53) % MCV 91.4 (80-100) fL MCH 31.1 (26-34) PG MCHC 34.0 (30-36) % RDW 13.0 (11.6-14.8) % Plt Count 204 (150-400) X10^3/uL Neut % (Auto) 70.8 (50-75) % Lymph % (Auto) 16.3 L (25-40) % Lipscomb % (Auto) 9.5 (3-14) % Eos % (Auto) 2.5 (2-4) % Baso % (Auto) 0.9 (0-2) % Lymph # (Auto) Not Reportable Lipscomb # (Auto) Not Reportable Baso # (Auto) Not Reportable Sodium 138 (137-145) mmol/L Potassium 4.4 (3.4-5.1) mmol/L Chloride 105 (98-107) mmol/L Carbon Dioxide 30 (22-32) mmol/L BUN 12 (9-20) mg/dL Creatinine 0.55 L (0.66-1.25) mg/dL Estimated GFR > 60.0 (>60) mL/min BUN/Creatinine Ratio 21.8 (6-22) Glucose 93 (80-110) mg/dL Calcium 9.2 (8.4-10.2) mg/dL Magnesium 2.0 (1.6-2.3) mg/dL Total Bilirubin 0.5 (0.2-1.3) mg/dL AST 38 (17-59) IU/L ALT 40 (<50) IU/L Alkaline Phosphatase 68 (38-126) U/L Total Creatine Kinase 123 (55-170) U/L CK-MB (CK-2) 2.01 (<2.37) ng/mL CK-MB (CK-2) Rel Index 1.6 (1.5-5.0) % Troponin I < 0.012 < 0.012 (0.01-0.034) ng/mL Total Protein 7.3 (6.3-8.2) g/dL Albumin 4.3 (3.5-5.0) g/dL Globulin 3.0 (1.7-4.1) g/dL Albumin/Globulin Ratio 1.4 (1.0-2.8) Lipase 260 (23-300) U/L ECG Data Interpretation: 11:32 -EKG #1 -rate of 61, normal rhythm, no ST elevation 12:08 - EKG #2 -rate of 63, normal rhythm, no ST elevation Kristy-EKG 1. Sinus rhythm rate 61 right bundle-branch block noted no ST changes no prior to compare EKG 2 sinus rhythm rate 63 similar to previous no changes Discharge Plan Departure Patient Disposition: Home Clinical Impression: Hypertension, Chest pain Instructions: Blood Pressure Testing and Measurement, DI for High Blood Pressure Activity Restrictions/Additional Instructions: Thank you for coming into our Emergency Department today. I am glad that your symptoms improved with the nitroglycerin. As we discussed I suspect the sy mptoms were due to the elevated blood pressure. Please take the beta-celeste that your primary care provider Dr. Florentino prescribed. Please also read the attached information regarding monitoring blood pressure readings. Please follow-up with Dr. Florentino for further evaluation within the upcoming week. I am glad you are feeling better. Prescriptions: No Action cholecalciferol (vitamin D3) 10 mcg (400 unit) capsule 10 mcg PO DAILY 0RF Suprep Bowel Prep Kit 17.5-3.13-1.6 gram recon soln See Rx Instructions PO .COMPLEX Qty: 354 0RF Rx Instructions: DILUTE; drink full amount early evening before AND next morning at least 2 hr before procedure; follow w 32 oz. water PO simvastatin 20 mg Tablet 20 mg PO BEDTIME 0RF Rx Instructions: For cholesterol control nitroglycerin [Nitrostat] 0.4 mg Tablet, Sublingual 0.4 mg SUBLINGUAL PRN PRN (Reason: Chest Pain) 0RF Label Comments: has not used yet Rx Instructions: May repeat in 5 minutes aspirin 81 mg Tablet,Chewable 40.5 mg PO WEEKLY 0RF [id number] serr [Glucosamine Daily Complex] 1,500-400-100 mg-unit-mg Tablet 1 tab PO DAILY 0RF Referrals: Osito Florentino MD [Primary Care Provider] - <Rachel Wagner DO - Last Filed: 01/10/22 15:50> Cosign ED Attending Cosignature Attestation: I was immediately available in the department for consultation. Documentation has been reviewed. I agree with assessment and plan.
[2022-01-07] MEDS: ASPIRIN 81 MG CHEW TAB 324 MG PO (12:37)
[2022-01-07] MEDS: NITROGLYCERIN 0.4 MG SL TAB SL (12:37)
[2022-01-07 13:07] LABS: Alanine Aminotransferase 40 IU/L (<50); Albumin 4.3 g/dL (3.5-5.0); Albumin Globulin Ratio 1.4 (1.0-2.8); Alkaline Phosphatase 68 U/L (38-126); Aspartate Aminotransferase 38 IU/L (17-59); BUN Creatinine Ratio 21.8 (6-22); Bilirubin Total 0.5 mg/dL (0.2-1.3); Blood Urea Nitrogen 12 mg/dL (9-20); Calcium 9.2 mg/dL (8.4-10.2); Carbon Dioxide 30 mmol/L (22-32); Chloride 105 mmol/L (98-107); Creatine Kinase 123 U/L (55-170); Estimated Glomerular Filt Rate > 60.0 mL/min (>60); Glucose 93 mg/dL (80-110); HEMOLYSIS < 15 (0-50); Lipase 260 U/L (23-300); Potassium 4.4 mmol/L (3.4-5.1); Sodium 138 mmol/L (137-145); Total Protein 7.3 g/dL (6.3-8.2)
[2022-01-07 13:17] LABS: Troponin I < 0.012 ng/mL (0.01-0.034)
[2022-01-07 13:21] LABS: CKMB % Relative Index 1.6 % (1.5-5.0); Creatine Kinase MB 2.01 ng/mL (<2.37)
[2022-01-07 15:25] LABS: Troponin I < 0.012 ng/mL (0.01-0.034)
== END 2022-01-07 15:51 | disposition home or self-care (01) ==
PROVIDERS: Emergency Medicine; Emergency Provider Physician Assistant Medical; Family Provider Family Medicine; PCP Family Medicine
DX: I10 Essential (primary) hypertension (principal); R07.9 Chest pain, unspecified; Z87.891 Personal history of nicotine dependence; H53.8 Other visual disturbances
CPT/HCPCS: 36415; 70450; 71045; 80053; 82550; 82553; 83690; 83735; 84484; 85025; 93005; 93010; 99284

== ENCOUNTER → 2022-01-14 07:27 | Outpatient (CLI) | payer MEDICARE, OTHER, SELFPAY ==
--- NOTE | 2022-01-14 | DI.MRI.S_ITS ---
PROCEDURE: MR STROKE Pre- and post-contrast brain MRI, non-contrast brain MR angiogram, pre- and postcontrast neck MR angiogram INDICATIONS: Headache, unspecified; other chest pain TECHNIQUE: Brain: Noncontrast axial T1 spin echo, axial T2 fast spin echo, sagittal and axial FLAIR, coronal T2 fast spin echo, axial gradient echo, axial diffusion and ADC through the brain. After the administration of contrast, axial 3D VIBE of the cranial vasculature and brain. Brain MRA: Non-contrast 3-D time of flight MR angiogram, with multiple jacugdc-fxbardbgg-qjrcyfptpu (MIP) reformats performed. Neck MRA: Axial and sagittal TruFISP through the neck. Coronal dynamic MR angiogram during administration of contrast in the arterial and venous phases, with 3-dimenstional knmnmky-ffnhqpqxk-cocycmzvdk (MIP) reformats constructed from subtraction images. COMPARISON: None. FINDINGS: Image quality: Motion is present within the exam, limiting areas of evaluation. BRAIN: The ventricular system and cortical sulci demonstrate atrophy, consistent for the patient's stated age. There are areas of increased T2/FLAIR signal intensity within the periventricular and subcortical white matter. There is no acute intra-or extra axial fluid collection. No acute hemorrhage, mass lesion or midline shift. Brainstem is unremarkable. There are no areas of restricted diffusion. Globes are symmetrical. Sinuses demonstrate pansinus mucosal Osseous structures are intact. BRAIN MR ANGIOGRAM: Anterior circulation: Intracranial internal carotid arteries are normal in size and enhancement. The flow within the paired anterior cerebral arteries is normal and symmetric. The flow within the middle cerebral arteries is normal and symmetric. The anterior communicating artery is seen. There is a lobulated appearance measuring approximately 3 mm at the distal A2 segment the left A2 segment of the anterior cerebral artery. It is poorly characterized secondary to motion No stenoses, occlusions, or aneurysms. Posterior circulation: The visualized portions of the vertebral arteries demonstrate normal caliber, and join to form a normal appearing basilar artery. The flow within the posterior cerebral arteries is normal and symmetric. No stenoses, occlusions, or aneurysms. There is a left vertebral artery dominance. The right vertebral artery PICA consistent with congenital variation. NECK MR ANGIOGRAM: Carotids: Great vessels demonstrate a conventional anatomy as they arise from the aortic arch. The origins of the common carotid arteries appear patent. The calibers and courses of both common carotid arteries are normal. The bifurcation regions appear normal bilaterally. The internal carotid arteries demonstrate normal course and caliber. Posterior circulation: The origins of the vertebral arteries appear patent. More superior portions of both vertebral arteries demonstrate normal course and caliber, and join to form a normal appearing basilar artery. Miscellaneous: Subclavian arteries appear patent. Pre-contrast images through the neck show no soft tissue abnormalities. IMPRESSION: 1. No acute intracranial process. 2. Moderate atrophy and chronic microvascular ischemic changes.. 3. Lobulated appearance of the distal A2 segment of the anterior cerebral artery concerning for aneurysm. Significant motion is present and CTA is recommended for further evaluation. A message was left for Dr. Page, covering for Dr. Osito Worthington on 01/14/2022 at 1:00 p.m.. Dictated by: Marcella Magallon M.D. on 01/14/2022 at 11:04 Approved by: Marcella Magallon M.D. on 01/14/2022 at 13:10
--- NOTE | 2022-01-14 08:48 | DI.CT.S_ITS ---
PROCEDURE: CT CHEST W CON INDICATIONS: Headache, unspecified; other chest pain TECHNIQUE: After the administration of intravenous contrast, 5 mm thick sections acquired from the pulmonary apices to the posterior costophrenic angles. 1 mm axial lung, 5 mm thick coronal and sagittal reformats and 7 mm axial MIP were acquired. For radiation dose reduction, the following was used: automated exposure control, adjustment of mA and/or kV according to patient size. COMPARISON: [facility], CR, XR CHEST 1V, 01/07/2022, 11:46. [facility], CR, XR CHEST 2V, 06/25/2018, 7:47. FINDINGS: Image quality: Excellent. Lungs and pleura: Nodular opacity at the right lung base measuring 0.7 cm, (3/227), not seen in 2014. There is mild subpleural reticular thickening again seen. No acute air space opacities. No pleural effusions or pneumothorax. Central and peripheral airways are patent and normal in caliber. Mediastinum: Heart size is normal. No pericardial effusion. No mediastinal or hilar adenopathy by size criteria. Thoracic aorta and central pulmonary arteries are normal in size. No central pulmonary embolism. Esophagus is normal in caliber. No hiatal hernia. Bones and chest wall: Sclerotic focus at T1, (3/42), previously punctate in 2015. This has a benign appearance such as bone island. No vertebral body compression fractures. No axillary or supraclavicular adenopathy by size criteria. Left thyroid nodule measuring 0.9 cm. Upper abdomen: Small a hypodense focus in the liver, (2/58), unchanged. Likely a benign cyst or hemangioma. Circumscribed hypodensity in the spleen measuring 2.7 cm, (2/64), not seen in 11/2014. This could represent a benign cyst or hemangioma. Visualized upper abdominal solid organs appear normal. No adrenal nodule. No free fluid. IMPRESSION: 1. Right lower lobe pulmonary nodule or nodular opacity measuring 0.7 cm. -Recommend follow-up chest CT in 3-6 months. 2. Mild peripheral reticular thickening is similar to 2015. 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 3. No adenopathy. 4. No acute airspace opacity. Dictated by: Rk Dawson M.D. on 01/14/2022 at 8:30 Approved by: Rk Dawson M.D. on 01/14/2022 at 8:44
== END ==
PROVIDERS: Family Provider Family Medicine; PCP Family Medicine; Referring Provider Family Medicine; Visit Provider Family Medicine
DX: R51.9 Headache, unspecified (principal); R07.89 Other chest pain; R91.1 Solitary pulmonary nodule; G31.9 Degenerative disease of nervous system, unspecified; I67.1 Cerebral aneurysm, nonruptured; R94.02 Abnormal brain scan
CPT/HCPCS: 70496; 70548; 70553; 71260; A9579; Q9967

== ENCOUNTER → 2022-01-14 14:29 | Outpatient (CLI) | payer MEDICARE, OTHER, SELFPAY ==
--- NOTE | 2022-01-14 14:32 | DI.CT.S_ITS ---
PROCEDURE: CT ANGIO HEAD INDICATIONS: Cerebral aneurysm, nonruptured TECHNIQUE: Precontrast 4.5 mm thick angled axial sections acquired from the foramen magnum to the vertex. After the administration of intravenous contrast, 1 mm thick sections acquired through the [place] of [place]. Postcontrast 4.5 mm thick sections then re-acquired from the foramen magnum to the vertex. 10 mm thick csyreld-syksnooal-jybcpstvll (MIP) reformats were acquired of the central intracranial vasculature. For radiation dose reduction, the following was used: automated exposure control, adjustment of mA and/or kV according to patient size. COMPARISON: [facility], CT, CT HEAD/BRAIN WO CON, 01/07/2022, 12:01. [facility], MR, MR STROKE, 01/14/2022, 8:05. FINDINGS: Image quality: Excellent. Anterior circulation: At the area of clinical concern within the distal left A2 segment, there is an aneurysm seen, as on series 7, image 67 and on series 8, image 58 measuring 4 mm. There is a diminutive right A1 segment, with a corresponding robust left A1 segment. This is considered to be a normal developmental variant of the [place], of typically no clinical consequence. The flow within the paired anterior cerebral arteries is otherwise normal and symmetric. Intracranial internal carotid arteries are normal in size and flow. The flow within the middle cerebral arteries is normal and symmetric. The anterior communicating artery is seen. No aneurysms are seen. Posterior circulation: The distal right vertebral artery largely terminates in the right posterior inferior cerebellar artery. The left V4 segment is within normal limits. There is a normal appearing basilar artery. There is a prominent left posterior communicating artery seen, with an accompanying diminutive left P1 segment. This is attributed to a type origin of the left posterior cerebral artery, which is considered to be a normal developmental variant of typically no clinical consequence. Flow within the posterior cerebral arteries is normal and symmetric. No aneurysms are seen. CSF spaces: Ventricles are normal in size and shape. Basal cisterns are patent. No extra-axial fluid collections. Brain: No midline shift. No intracranial bleeds or masses. Thurman-white matter interface appears intact. Skull and face: Calvarium and facial bones appear intact, without suspicious lesions. Sinuses: Visualized sinuses and mastoids are clear. 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 Incidental note is made of: Ghqiot-pq-[place] developmental anomalies Dictated by: Reginaldo Lott M.D. on 01/14/2022 at 16:06 Approved by: Reginaldo Lott M.D. on 01/14/2022 at 16:12
== END ==
PROVIDERS: Family Provider Family Medicine; PCP Family Medicine; Referring Provider Family Medicine; Visit Provider Family Medicine
DX: I67.1 Cerebral aneurysm, nonruptured (principal); R94.02 Abnormal brain scan
CPT/HCPCS: 70496; Q9967

== ENCOUNTER → 2022-01-28 11:02 | Outpatient (CLI) | payer MEDICARE, OTHER, SELFPAY ==
[2022-01-28 12:15] LABS: COVID19 -Nasal RAPID Negative (Negative)
== END ==
PROVIDERS: Family Provider Family Medicine; PCP Family Medicine; Visit Provider Family Medicine Sleep Medicine
DX: Z20.822 Contact with and (suspected) exposure to COVID-19 (principal)
CPT/HCPCS: 87635; C9803

== ENCOUNTER → 2022-01-31 10:34 | Outpatient (CLI) | payer MEDICARE, OTHER, SELFPAY ==
--- NOTE | 2022-01-31 | DI.NM.S_ITS ---
PROCEDURE: NM FAITH PERF SPECT REST & STR Rest and exercise myocardial perfusion SPECT with gated imaging and ejection fraction RADIOPHARMACEUTICAL: 25.7 mCi Tc-99m sestamibi IV at rest and 25.9 mCi Tc-99m sestamibi IV at peak exercise. A [id number] was performed. INDICATIONS: Other chest pain TECHNIQUE: Radiopharmaceutical was injected at peak stress test, and also at rest. SPECT images were obtained. SPECT myocardial perfusion images were displayed in short axis, horizontal long axis, and vertical long axis views. Gated images were reviewed using [employer] software. COMPARISON: None. CARDIAC STRESS: A standard Nino treadmill exercise tolerance test was performed by the patient under the supervision of an attending staff. The patient exercised for 7 minutes and 31 seconds; 10.1 METS; functional aerobic impairment (BRENDEN) is -19%. Hemodynamic data: There is normal blood pressure and heart rate response to exercise stress. Patient achieved 103% of maximum predicted heart rate at peak exercise. Peak blood pressure 158/90. Symptoms: Patient denied chest pain during exercise. EKG: No diagnostic EKG changes of ischemia; no ectopy. FINDINGS: Raw data: There is good myocardial labeling by radiotracer. No significant motion artifacts. Qzsy-ry-efmmn ratio is 0.34 (normal is less than 0.38 for sestamibi tracer, and less than 0.50 for thallium tracer). Left ventricle function: Gated images demonstrate normal left ventricle wall thickening. No segmental wall motion abnormality. No transient ischemic dilation; TID is 0.94 (normal less than 1.3). The left ventricle resting end-diastolic volume is 79 mL. Left ventricle stress ejection fraction is >75%; normal values are above 45%. Myocardial perfusion: There is normal distribution of activity in the left ventricular myocardium. No fixed or reversible perfusion defects. IMPRESSION: 1. No evidence of exercise-induced ischemia on ECG or SPECT images. 2. Good exercise capacity. 3. Normal blood pressure response to exercise. Dictated by: Domonique Mazariegos D.O. on 02/01/2022 at 13:39 Approved by: Domonique Mazariegos D.O. on 02/01/2022 at 13:44
== END ==
PROVIDERS: Family Provider Family Medicine; PCP Family Medicine; Referring Provider Family Medicine; Visit Provider Family Medicine
DX: R51.9 Headache, unspecified (principal); R07.89 Other chest pain
CPT/HCPCS: 78452; 93017; A9502

== ENCOUNTER → 2022-07-11 10:41 | Outpatient (CLI) | payer MEDICARE, OTHER, SELFPAY ==
--- NOTE | 2022-07-11 | DI.CT.S_ITS ---
PROCEDURE: CT CHEST WO CON INDICATIONS: solitary pulmonary nodule TECHNIQUE: Noncontrast 2.0-2.5 mm thick sections acquired from the pulmonary apices to the posterior costophrenic angles. 7 mm thick axial MIP and 5 mm coronal and sagittal reformats were then acquired. A low radiation dose technique was utilized. COMPARISON: [facility], CT, CT CHEST W CON, 01/14/2022, 8:51. FINDINGS: Image quality: Diagnostic, given the low radiation dose technique. Lungs and pleura: Previously described 7 mm nodular density in right lower lobe near right lung base is less well defined and show decreased density series 3, image 218 and measures 6 mm in size. Mild chronic emphysematous changes are seen. Biapical scarring is noted. Scattered atelectasis and scarring in periphery of bilateral lung layne are seen. No new pulmonary nodule or mass. Central and peripheral airway is patent. No pleural effusion or pneumothorax. Mediastinum: Heart size is normal. No pericardial effusion. No mediastinal adenopathy by size criteria. Thoracic aorta and central pulmonary arteries are normal in size. Cqec-jb-gatxnmor atherosclerotic calcifications are noted in throughout coronary vessels and thoracic aorta. Esophagus is normal in caliber. There is a small hiatal hernia. Bones and chest wall: No suspicious bony lesions. No vertebral body compression fractures. No axillary or supraclavicular adenopathy by size criteria. Thyroid gland is within normal limits. Abdomen: Visualized upper abdomen solid organs and bowel loops appear normal in the absence of contrast. IMPRESSION: 1. Previously described 7 mm solid nodule in right lung base shows interval decreased density and measures 6 mm in size on the current study suggestive of benign process. Additional [address] chest follow-up is recommend. 2. No new pulmonary nodule is seen. Biapical scarring. Scattered scarring/atelectasis in periphery of bilateral lung layne. No pleural effusion or pneumothorax. Airway is patent. 3. Olye-hr-drlfsksr atherosclerotic disease. No mediastinal or hilar lymphadenopathy by size criteria. Small hiatal hernia. Fleischner Society criteria for SOLID lung nodule followup. Nodule size (mm)Low-risk patientHigh-risk patient<6 (single or multiple)No routine followup.Optional CT at 12 months. 6-8 (single or multiple)CT at 6-12 months, then optional CT at 18-24 mo.CT at 6-12 months, then CT at 18-24 months. >8 (single)CT at 3 months, PET-CT, or biopsy. Same as for low-risk pts. >8 (multiple)CT at 3-6 months, then optional CT at 18-24 mo.CT at 3-6 months, then CT at 18-24 months. Fleischner Society criteria for SUB-SOLID lung nodule followup. Solitary pure ground-glass nodules<6 mm (ground glass or part solid)No followup needed. 6 mm or larger (ground glass)CT at 6-12 months to confirm persistence, then CT every 2 years until 5 years.6 mm or larger (part solid)CT at 3-6 months to confirm persistence, then annual CT until 5 years if unchanged and solid component remains <6 mm. Multiple sub-solid nodules<6 mmCT at 3-6 months, then CT consider at 2 & 4 years for high risk patients. [address] at 3-6 months. Subsequent management based on most suspicious lesions. Recommendations do not apply to lung cancer screening, patients with immunosuppression, or patients with known primary cancer. Dictated by: Kingsley Mauricio M.D. on 07/11/2022 at 12:19 Approved by: Kingsley Mauricio M.D. on 07/11/2022 at 12:23
== END ==
PROVIDERS: Family Provider Family Medicine; PCP Family Medicine; Referring Provider Family Medicine; Visit Provider Family Medicine
DX: R91.1 Solitary pulmonary nodule (principal); J98.11 Atelectasis; I70.90 Unspecified atherosclerosis
CPT/HCPCS: 71250

== ENCOUNTER → 2023-09-15 15:31 | Outpatient (CLI) | payer MEDICARE, OTHER, SELFPAY ==
--- NOTE | 2023-09-15 | DI.US.S_ITS ---
PROCEDURE: US SCROTUM INDICATIONS: RIGHT TESTICULAR PAIN TECHNIQUE: Real-time scanning was performed of the scrotum and testicles, with image documentation. Color and pulse Doppler interrogation was performed of both testicles. COMPARISON: None. FINDINGS: Right: Testicle is normal in size at 4.0 x 2.5 x 3.1 cm, and homogenous in echotexture. Epididymis is normal in overall size and morphology. No hydrocele or varicoceles. Overlying scrotal skin is normal in thickness. Left: Testicle is normal in size at 4.1 x 2.3 x 2.3 cm, and homogeneous in echotexture. Epididymis is normal in overall size and morphology. No hydrocele or varicoceles. Overlying scrotal skin is normal in thickness. Doppler: Color and pulse Doppler demonstrate normal and symmetric arterial flow in both testicles. IMPRESSION: The testes and epididymides are normal in appearance. No cause for patient's symptoms are identified. Dictated by: Srinivas William M.D. on 09/15/2023 at 16:59 Approved by: Srinivas William M.D. on 09/15/2023 at 16:59
== END ==
PROVIDERS: Family Provider Family Medicine; PCP Family Medicine; Referring Provider Family Medicine; Visit Provider Family Medicine
DX: N50.811 Right testicular pain (principal)
CPT/HCPCS: 76870; 93975

== ENCOUNTER → 2023-10-05 14:06 | Outpatient (CLI) | payer MEDICARE, OTHER, SELFPAY ==
--- NOTE | 2023-10-05 | DI.CT.S_ITS ---
PROCEDURE: CT CHEST WO CON INDICATIONS: PULMONARY NODULE FOLLOW UP TECHNIQUE: Noncontrast 5 mm thick sections acquired from the pulmonary apices to the posterior costophrenic angles. 1 mm lung window, 5 mm thick coronal and sagittal and 7 mm axial MIP reformats were then acquired. For radiation dose reduction, the following was used: automated exposure control, adjustment of mA and/or kV according to patient size. COMPARISON: [facility], CT, CT CHEST W CON, 01/14/2022, 8:51. [facility], CT, CT CHEST WO CON, 07/11/2022, 10:51. FINDINGS: Image quality: Diagnostic. Lungs and pleura: A previously described 7 mm nodular density in the right lower lobe which became less conspicuous on 07/11/2022 is now barely perceptible with only a very subtle ground-glass opacity in this location. The lungs have peripheral subpleural septal thickening in the apices, unchanged. No acute air space opacities. No pleural effusions or pneumothorax. Central and peripheral airways are patent and normal in caliber. Mediastinum: Heart size is normal. No pericardial effusion. No mediastinal adenopathy by size criteria. The coronary arteries have atherosclerotic calcifications. Thoracic aorta and central pulmonary arteries are normal in size. Esophagus is normal in caliber. Small hiatal hernia. Bones and chest wall: No suspicious bony lesions. No vertebral body compression fractures. No axillary or supraclavicular adenopathy by size criteria. No thyroid nodules which require sonographic follow up, per consensus guidelines. Upper Abdomen: Visualized upper abdominal solid organs and bowel loops appear normal in the absence of contrast. IMPRESSION: 1. Previously described 7 mm nodule in the right lung base is a most completely resolved since the 01/14/2022 and is therefore benign. 2. No new pulmonary nodule. 3. Biapical scarring. Dictated by: Owen Scott M.D. on 10/05/2023 at 14:41 Approved by: Owen Scott M.D. on 10/05/2023 at 14:46
== END ==
PROVIDERS: Family Provider Family Medicine; PCP Family Medicine; Referring Provider Family Medicine; Visit Provider Family Medicine
DX: R91.1 Solitary pulmonary nodule (principal)
CPT/HCPCS: 71250

== ENCOUNTER → 2023-10-12 13:24 | Outpatient (CLI) | payer MEDICARE, OTHER, SELFPAY ==
--- NOTE | 2023-10-12 13:31 | DI.CT.S_ITS ---
PROCEDURE: CT ABDOMEN PELVIS W CON INDICATIONS: Abdominal and groin pain TECHNIQUE: After the administration of oral and intravenous contrast, axial sections were acquired from the lung bases to the pubic symphysis. Coronal and sagittal reformats were performed. For radiation dose reduction, the following was used: automated exposure control, adjustment of mA and/or kV according to patient size. COMPARISON:None. FINDINGS: Image quality: Excellent. Lung bases: Unremarkable. Heart: No significant findings. ABDOMEN: Liver: Subcentimeter right hepatic hypodensity (2/24), too small to characterize, probable cyst versus hemangioma. Gallbladder: No radiopaque gallstones or wall thickening. Biliary ducts: No biliary dilation. Pancreas: No ductal dilation. Spleen: Size is within normal limits. Low attenuating 3.1 cm well-circumscribed splenic mass (2/28) with fluid attenuation, probable cyst. Adrenal Glands: No adrenal nodules. Kidneys and Ureters: No hydronephrosis. No solid mass. No complex renal cystic lesion which requires follow up. Stomach and Bowel: Normal colonic caliber, without significant wall thickening. Rectosigmoid diverticulosis. No CT evidence of acute diverticulitis. Peritoneum: No abnormal intraperitoneal fluid. No free air. Ventral Wall: Small fat containing umbilical hernia. Abdominal Nodes: No retroperitoneal or mesenteric adenopathy by size criteria. Vessels: Aorta and inferior vena cava are normal in size. Calcified and noncalcified atherosclerotic plaques of the abdominal aorta. PELVIS: Pelvic Organs: Mildly enlarged prostate. Bladder: Unremarkable. Pelvic Nodes: No enlarged lymph nodes. Miscellaneous: Small bilateral fat containing inguinal hernias are seen. Bones: No acute or suspicious osseous abnormality. Moderate degenerative changes of the visualized spine. IMPRESSION: No acute findings in the abdomen pelvis to explain patient's symptoms. Rectosigmoid diverticulosis without CT evidence of acute diverticulitis. Fluid attenuating 3.1 cm splenic mass is favored to represent a cyst. Subcentimeter hepatic hypodensity is too small to characterize, probable cyst versus hemangioma. Dictated by: Christin Jaquez M.D. on 10/12/2023 at 16:22 Approved by: Christin Jaquez M.D. on 10/12/2023 at 16:31
[2023-10-12 14:03] LABS: BUN Creatinine Ratio 24.2 (6-22); Blood Urea Nitrogen 15 mg/dL (9-20); Calcium 10.1 mg/dL (8.4-10.2); Carbon Dioxide 30 mmol/L (22-32); Chloride 101 mmol/L (98-107); Estimated Glomerular Filt Rate > 60 mL/min (>60); Glucose 88 mg/dL (80-110); HEMOLYSIS < 15 (0-50); Potassium 4.5 mmol/L (3.4-5.1); Sodium 138 mmol/L (137-145)
== END ==
PROVIDERS: Family Provider Family Medicine; PCP Family Medicine; Referring Provider Family Medicine; Visit Provider Family Medicine
DX: K57.30 Diverticulosis of large intestine without perforation or abscess without bleeding (principal); R10.31 Right lower quadrant pain; R10.32 Left lower quadrant pain; G89.29 Other chronic pain; R16.1 Splenomegaly, not elsewhere classified
CPT/HCPCS: 36415; 74177; 80048; Q9967

== ENCOUNTER → 2024-01-05 09:20 | Outpatient (CLI) | payer MEDICARE, OTHER, SELFPAY ==
--- NOTE | 2024-01-05 09:22 | DI.RAD.S_ITS ---
PROCEDURE: XR HIP W PEL IF DONE BILAT 2V INDICATIONS: PUBIC BONE PAIN TECHNIQUE: AP pelvis with lateral view(s) of the bilateral hip(s). COMPARISON: None. FINDINGS: Bones: No fractures or dislocations. Moderate degenerative changes of the bilateral hip joints. Moderate degenerative changes of the pubic symphysis. Degenerative changes of the visualized lower lumbar spine. Pelvic ring appears intact. No suspicious bony lesions. Soft tissues: The visualized bowel gas pattern is normal. No suspicious soft tissue calcifications. IMPRESSION: Degenerative changes of the pubic symphysis and bilateral hips. No acute osseous abnormalities. Dictated by: Srinivas William M.D. on 01/05/2024 at 10:06 Approved by: Srinivas William M.D. on 01/05/2024 at 10:10
== END ==
LOC: RAD 09:21
PROVIDERS: Family Provider Family Medicine; PCP Family Medicine; Referring Provider Family Medicine; Visit Provider Family Medicine
DX: M89.9 Disorder of bone, unspecified (principal)
CPT/HCPCS: 73521

== ENCOUNTER → 2024-10-04 12:27 | Outpatient (CLI) | payer MEDICARE, OTHER, SELFPAY ==
--- NOTE | 2024-10-04 12:29 | DI.US.S_ITS ---
PROCEDURE: US ABDOMEN COMPLETE INDICATIONS: LOWER ABD PAIN TECHNIQUE: Real-time scanning was performed of the abdominal and retroperitoneal organs, with image documentation. COMPARISON: [facility], CT, CT ABDOMEN PELVIS W CON, 10/12/2023, 14:43. FINDINGS: Liver: The liver demonstrates normal size. The liver demonstrates generalized mildly increased echogenicity. This decreases ultrasound sensitivity for detection of hepatic masses. Gallbladder: No findings of gallstones or sludge are seen. The gallbladder wall is not thickened, measuring 3 mm or less. No specific pericholecystic fluid is seen. The sonographic Landeros sign is negative. Biliary ducts: Intrahepatic bile ducts are non-dilated. Extrahepatic bile duct caliber measures 5 mm. Normal is 6-7 mm or less in diameter, or 10 mm or less post-cholecystectomy. Pancreas: Visualized portions of the pancreas are sonographically normal. Spleen: Spleen is normal in size and demonstrates a 3.1 cm cyst medially and inferiorly. Kidneys: Kidneys are normal in size and echotexture. Right kidney measures 10.5 cm long; left kidney measures 11 cm long. No hydronephrosis or nephrolithiasis. No solid masses. At the inferior pole of the left kidney, there is a simple cyst seen that measures up to 2.9 cm, without abnormal vascularity. Aorta: Visualized aorta is normal in caliber at less than 3 cm. Iliacs: Proximal common iliac arteries are normal in caliber at less than 2.5 cm. IVC: Intrahepatic inferior vena cava is patent. Miscellaneous: No free abdominal fluid. IMPRESSION: No imaging explanation is found for this patient's presenting symptoms. The gallbladder demonstrates a normal sonographic appearance. No biliary dilatation is seen. The liver demonstrates mildly increased echogenicity. This finding is nonspecific, yet it is most commonly attributed to fatty infiltration. Additional findings: Stable 3.1 cm cyst within the spleen Simple left renal cyst, 2.9 cm Dictated by: Reginaldo Lott M.D. on 10/04/2024 at 12:58 Approved by: Reginaldo Lott M.D. on 10/04/2024 at 13:01
== END ==
PROVIDERS: Family Provider Family Medicine; PCP Family Medicine; Referring Provider Family Medicine; Visit Provider Family Medicine
DX: N28.1 Cyst of kidney, acquired (principal); D73.4 Cyst of spleen; R10.30 Lower abdominal pain, unspecified
CPT/HCPCS: 76700

== ENCOUNTER → 2025-04-11 09:47 | Outpatient (CLI) | payer MEDICARE, OTHER, SELFPAY ==
--- NOTE | 2025-04-11 | DI.CT.S_ITS ---
PROCEDURE: CT ABDOMEN PELVIS W CON INDICATIONS: RLQ pain, GERD TECHNIQUE: After the administration of intravenous contrast, axial sections acquired from the lung bases to the pubic symphysis. Coronal and sagittal reformats were performed. For radiation dose reduction, the following was used: automated exposure control, adjustment of mA and/or kV according to patient size. COMPARISON: [facility], CT, CT ABDOMEN PELVIS W CON, 10/12/2023, 14:43. FINDINGS: Image quality: Diagnostic. Lower Chest: N small hiatal hernia. ABDOMEN: Liver: No solid mass. Stable subcentimeter hypoattenuating lesion in segment 6, likely a small cyst. Gallbladder: No radiopaque gallstones or wall thickening. Biliary ducts: No biliary dilation. Pancreas: No ductal dilation. Spleen: 3.1 cm splenic cyst, previously 3.0 cm. Adrenal Glands: No adrenal nodules. Kidneys and Ureters: No hydronephrosis. No solid mass. No complex renal cystic lesion which requires follow up. Stomach and Bowel: Normal colonic caliber, without significant wall thickening. Colonic diverticulosis without evidence of diverticulitis. Normal appendix. Peritoneum: No abnormal intraperitoneal fluid. No free air. Ventral Wall: No significant ventral hernia. Abdominal Nodes: No retroperitoneal or mesenteric adenopathy by size criteria. Vessels: Aorta and inferior vena cava are normal in size. PELVIS: Pelvic Organs: Unremarkable. Bladder: No bladder wall thickening, accounting for underdistention. Submucosal fat deposition. Pelvic Nodes: No enlarged lymph nodes. Miscellaneous: No inguinal hernias are seen. Bones: No aggressive osseous abnormality. IMPRESSION: Submucosal fat deposition of the urinary bladder, consistent with chronic infection or inflammation. Colonic diverticulosis without evidence of diverticulitis. Slight interval growth of the splenic cyst, still most certainly benign given imaging features. Small hiatal hernia. Dictated by: Polo Dodge M.D. on 04/11/2025 at 16:22 Approved by: Polo Dodge M.D. on 04/11/2025 at 16:25
[2025-04-11 10:25] LABS: Estimated Glomerular Filt Rate > 60 mL/min (>60)
== END ==
PROVIDERS: Family Provider Family Medicine; PCP Family Medicine; Referring Provider Internal Medicine Gastroenterology; Visit Provider Internal Medicine Gastroenterology
DX: D73.4 Cyst of spleen (principal); R10.31 Right lower quadrant pain; K29.40 Chronic atrophic gastritis without bleeding; K21.9 Gastro-esophageal reflux disease without esophagitis; K44.9 Diaphragmatic hernia without obstruction or gangrene; K57.90 Diverticulosis of intestine, part unspecified, without perforation or abscess without bleeding
CPT/HCPCS: 36415; 74177; 82565; Q9967